=== PATIENT | male | born 1970 | race Asian ===

== ENCOUNTER 2019-09-13 09:16 | Inpatient (IN) | payer BC ==
[~2019-09-13] VITALS: Ht 162.6 cm; Wt 83.0 kg
[2019-09-13 11:29] LABS: UA SPECIFIC GRAVITY 1.025 (1.005-1.035); microscopic required? YES; urine erythrocyte NEGATIVE (NEGATIVE)
[2019-09-13 11:31] LABS: T3 TOTAL 1.27 ng/mL
[2019-09-13 11:35] LABS: ALBUMIN 3.7 g/dL (3.4-5.0); ALKALINE PHOSPHATASE 84 U/L (46-116); ALT/SGPT 49 U/L (16-63); AST/SGOT 52 U/L (15-37); BILIRUBIN TOTAL 0.7 mg/dL (0.20-1.00); CALCIUM 8.7 mg/dL (8.5-10.1); CARBON DIOXIDE 29.7 mmol/L (21-32); CHLORIDE SERUM 102 mmol/L (98-107); CREATININE SERUM 1.4 mg/dL (0.7-1.3); GFR1 57 mL/min; GLUCOSE SERUM 137 mg/dL (74-106); SODIUM SERUM 141 mmol/L (136-145)
[2019-09-13 11:37] LABS: CK-MB 0.7 ng/mL (0-3.6)
[2019-09-13 11:57] LABS: FREE T4 1.34 ng/dL (0.76-1.46)
[2019-09-13 12:01] LABS: FREE THYROXINE INDEX 4.3 ug/dL (1.4-4.5); T4(THYROXINE) 14.2 ug/dL (4.7-13.3)
[2019-09-13 12:16] LABS: C REACTIVE PROTEIN 22.5 mg/dL (<=0.9)
[2019-09-13 12:18] LABS: POTASSIUM SERUM 2.9 mmol/L (3.5-5.1)
[2019-09-13] MEDS ORDERED: AZOR 10-20 MG1 EACH (13:24)
[2019-09-13] MEDS ORDERED: LOPRESSOR50 M1 (13:25)
[2019-09-13] MEDS ORDERED: COZAAR25 M1 (13:25)
[2019-09-13] MEDS ORDERED: FORTAMET500 M1 (13:26)
[2019-09-13] MEDS ORDERED: ATORVASTATIN CA10 M1 (13:26)
[2019-09-13 15:32] LABS: ERYTHROCYTE SED RATE 43 mm/hr (0-15)
[2019-09-13 15:34] LABS: BASOPHIL % 0 % (0-2); PLATELET COUNT 167 x10^3mcL (130-400); RED CELL DISTRIBUTION WIDTH 14.6 % (11.5-14.5)
[2019-09-13 16:00] VITALS: BP 136/100
[2019-09-13 16:13] VITALS: BP 113/68
[2019-09-13 19:05] VITALS: BP 120/73
[2019-09-13 23:35] VITALS: BP 129/86
[2019-09-14 03:02] VITALS: BP 115/85
[2019-09-14 04:37] LABS: BASOPHIL % 0.2 % (0-2); PLATELET COUNT 190 x10^3mcL (130-400); RED CELL DISTRIBUTION WIDTH 15.1 % (11.5-14.5)
[2019-09-14 05:08] LABS: CALCIUM 8.5 mg/dL (8.5-10.1); CHLORIDE SERUM 108 mmol/L (98-107); GFR1 > 60 mL/min; GLUCOSE SERUM 140 mg/dL (74-106); MAGNESIUM 1.9 mg/dL (1.8-2.4); PHOSPHOROUS 1.8 mg/dL (2.5-4.9); POTASSIUM SERUM 3.1 mmol/L (3.5-5.1); SODIUM SERUM 144 mmol/L (136-145)
[2019-09-14 08:00] VITALS: BP 113/76
[2019-09-14 11:30] VITALS: BP 106/72
[2019-09-14 20:45] VITALS: BP 133/96
[2019-09-15] VITALS (11 sets, daily range): BP systolic 83–211; BP diastolic 56–130
[2019-09-15 06:29] LABS: BASOPHIL % 0.5 % (0-2); PLATELET COUNT 219 x10^3mcL (130-400); RED CELL DISTRIBUTION WIDTH 14.3 % (11.5-14.5)
[2019-09-15 06:39] LABS: CALCIUM 8.6 mg/dL (8.5-10.1); CARBON DIOXIDE 29.1 mmol/L (21-32); CHLORIDE SERUM 106 mmol/L (98-107); CREATININE SERUM 0.8 mg/dL (0.7-1.3); GFR1 > 60 mL/min; GLUCOSE SERUM 92 mg/dL (74-106); MAGNESIUM 1.8 mg/dL (1.8-2.4); PHOSPHOROUS 2.4 mg/dL (2.5-4.9); POTASSIUM SERUM 3.2 mmol/L (3.5-5.1); SODIUM SERUM 145 mmol/L (136-145)
[2019-09-16] VITALS (19 sets, daily range): BP systolic 76–138; BP diastolic 49–91
[2019-09-16 05:54] LABS: BASOPHIL % 0.4 % (0-2); PLATELET COUNT 219 x10^3mcL (130-400); RED CELL DISTRIBUTION WIDTH 14.3 % (11.5-14.5)
[2019-09-16 06:11] LABS: CALCIUM 7.7 mg/dL (8.5-10.1); CARBON DIOXIDE 23.2 mmol/L (21-32); CHLORIDE SERUM 111 mmol/L (98-107); CREATININE SERUM 1.3 mg/dL (0.7-1.3); GFR1 > 60 mL/min; GLUCOSE SERUM 82 mg/dL (74-106); MAGNESIUM 1.5 mg/dL (1.8-2.4); PHOSPHOROUS 2.6 mg/dL (2.5-4.9); POTASSIUM SERUM 3.3 mmol/L (3.5-5.1); SODIUM SERUM 146 mmol/L (136-145)
[2019-09-17] VITALS (18 sets, daily range): BP systolic 85–116; BP diastolic 56–77
[2019-09-17 05:11] LABS: MAGNESIUM 1.4 mg/dL (1.8-2.4)
[2019-09-17 05:23] LABS: BASOPHIL % 0.5 % (0-2); PLATELET COUNT 227 x10^3mcL (130-400); RED CELL DISTRIBUTION WIDTH 14.4 % (11.5-14.5)
[2019-09-17 05:33] LABS: ALKALINE PHOSPHATASE 58 U/L (46-116); ALT/SGPT 55 U/L (16-63); AST/SGOT 98 U/L (15-37); BILIRUBIN TOTAL 0.5 mg/dL (0.20-1.00); CALCIUM 7.1 mg/dL (8.5-10.1); CARBON DIOXIDE 25.5 mmol/L (21-32); CHLORIDE SERUM 110 mmol/L (98-107); CREATININE SERUM 0.8 mg/dL (0.7-1.3); GFR1 > 60 mL/min; GLUCOSE SERUM 137 mg/dL (74-106); SODIUM SERUM 144 mmol/L (136-145)
[2019-09-17 05:45] LABS: ALBUMIN 1.8 g/dL (3.4-5.0); TOTAL PROTEIN, SERUM 5.1 g/dL (6.4-8.2)
[2019-09-17 05:54] LABS: C REACTIVE PROTEIN 25.6 mg/dL (<=0.9); POTASSIUM SERUM 2.5 mmol/L (3.5-5.1)
[2019-09-18] VITALS (17 sets, daily range): BP systolic 99–121; BP diastolic 57–92
[2019-09-18 05:06] LABS: BASOPHIL % 0.3 % (0-2); PLATELET COUNT 247 x10^3mcL (130-400); RED CELL DISTRIBUTION WIDTH 14.9 % (11.5-14.5)
[2019-09-18 05:09] LABS: ALKALINE PHOSPHATASE 100 U/L (46-116); ALT/SGPT 96 U/L (16-63); AST/SGOT 148 U/L (15-37); BILIRUBIN TOTAL 0.73 mg/dL (0.20-1.00); CALCIUM 7.3 mg/dL (8.5-10.1); CARBON DIOXIDE 25.3 mmol/L (21-32); CHLORIDE SERUM 110 mmol/L (98-107); CREATININE SERUM 0.6 mg/dL (0.7-1.3); GFR1 > 60 mL/min; GLUCOSE SERUM 124 mg/dL (74-106); MAGNESIUM 1.5 mg/dL (1.8-2.4); PHOSPHOROUS 1.7 mg/dL (2.5-4.9); POTASSIUM SERUM 3.1 mmol/L (3.5-5.1); SODIUM SERUM 145 mmol/L (136-145)
[2019-09-18 05:11] LABS: ALBUMIN 1.7 g/dL (3.4-5.0); TOTAL PROTEIN, SERUM 5.2 g/dL (6.4-8.2)
[2019-09-19] VITALS (18 sets, daily range): BP systolic 91–119; BP diastolic 58–82; Ht 162.6 cm; Wt 83.0 kg
[2019-09-19 05:58] LABS: BASOPHIL % 0.2 % (0-2); PLATELET COUNT 294 x10^3mcL (130-400); RED CELL DISTRIBUTION WIDTH 14.5 % (11.5-14.5)
[2019-09-19 06:14] LABS: ALKALINE PHOSPHATASE 163 U/L (46-116); ALT/SGPT 158 U/L (16-63); AST/SGOT 217 U/L (15-37); BILIRUBIN TOTAL 0.53 mg/dL (0.20-1.00); CALCIUM 7.7 mg/dL (8.5-10.1); CARBON DIOXIDE 28.8 mmol/L (21-32); CHLORIDE SERUM 107 mmol/L (98-107); CREATININE SERUM 0.6 mg/dL (0.7-1.3); GFR1 > 60 mL/min; GLUCOSE SERUM 149 mg/dL (74-106); MAGNESIUM 1.8 mg/dL (1.8-2.4); PHOSPHOROUS 2.4 mg/dL (2.5-4.9); POTASSIUM SERUM 3.4 mmol/L (3.5-5.1); SODIUM SERUM 142 mmol/L (136-145)
[2019-09-19 06:15] LABS: ALBUMIN 1.7 g/dL (3.4-5.0); TOTAL PROTEIN, SERUM 5.4 g/dL (6.4-8.2)
[2019-09-20] VITALS (17 sets, daily range): BP systolic 99–143; BP diastolic 66–89
[2019-09-20 05:23] LABS: BASOPHIL % 0.2 % (0-2); RED CELL DISTRIBUTION WIDTH 13.7 % (11.5-14.5)
[2019-09-20 05:27] LABS: PLATELET COUNT 401 x10^3mcL (130-400)
[2019-09-20 05:29] LABS: ALKALINE PHOSPHATASE 160 U/L (46-116); ALT/SGPT 133 U/L (16-63); AST/SGOT 113 U/L (15-37); BILIRUBIN TOTAL 0.66 mg/dL (0.20-1.00); CALCIUM 8.2 mg/dL (8.5-10.1); CARBON DIOXIDE 28.3 mmol/L (21-32); CHLORIDE SERUM 106 mmol/L (98-107); CREATININE SERUM 0.6 mg/dL (0.7-1.3); GFR1 > 60 mL/min; GLUCOSE SERUM 106 mg/dL (74-106); MAGNESIUM 1.8 mg/dL (1.8-2.4); POTASSIUM SERUM 3.8 mmol/L (3.5-5.1); SODIUM SERUM 144 mmol/L (136-145)
[2019-09-20 05:35] LABS: TOTAL PROTEIN, SERUM 6.1 g/dL (6.4-8.2)
[2019-09-21] VITALS (18 sets, daily range): BP systolic 87–137; BP diastolic 56–97
[2019-09-21 05:52] LABS: BASOPHIL % 0.6 % (0-2); PLATELET COUNT 377 x10^3mcL (130-400)
[2019-09-21 06:21] LABS: ALKALINE PHOSPHATASE 137 U/L (46-116); ALT/SGPT 95 U/L (16-63); AST/SGOT 58 U/L (15-37); BILIRUBIN TOTAL 0.49 mg/dL (0.20-1.00); CALCIUM 8.1 mg/dL (8.5-10.1); CARBON DIOXIDE 30.4 mmol/L (21-32); CHLORIDE SERUM 106 mmol/L (98-107); CREATININE SERUM 0.7 mg/dL (0.7-1.3); GFR1 > 60 mL/min; GLUCOSE SERUM 143 mg/dL (74-106); PHOSPHOROUS 3.3 mg/dL (2.5-4.9); POTASSIUM SERUM 3.8 mmol/L (3.5-5.1); SODIUM SERUM 142 mmol/L (136-145)
[2019-09-21 06:22] LABS: ALBUMIN 1.9 g/dL (3.4-5.0); TOTAL PROTEIN, SERUM 6.1 g/dL (6.4-8.2)
[2019-09-22] VITALS (18 sets, daily range): BP systolic 85–136; BP diastolic 51–84
[2019-09-22 05:42] LABS: BASOPHIL % 0.5 % (0-2); PLATELET COUNT 363 x10^3mcL (130-400)
[2019-09-22 05:49] LABS: RED CELL DISTRIBUTION WIDTH 14.6 % (11.5-14.5)
[2019-09-22 06:02] LABS: ALKALINE PHOSPHATASE 120 U/L (46-116); ALT/SGPT 74 U/L (16-63); AST/SGOT 38 U/L (15-37); BILIRUBIN TOTAL 0.3 mg/dL (0.20-1.00); CALCIUM 8.1 mg/dL (8.5-10.1); CARBON DIOXIDE 29.6 mmol/L (21-32); CHLORIDE SERUM 104 mmol/L (98-107); CREATININE SERUM 0.7 mg/dL (0.7-1.3); GFR1 > 60 mL/min; GLUCOSE SERUM 136 mg/dL (74-106); MAGNESIUM 2.1 mg/dL (1.8-2.4); PHOSPHOROUS 3.1 mg/dL (2.5-4.9); POTASSIUM SERUM 3.6 mmol/L (3.5-5.1); SODIUM SERUM 141 mmol/L (136-145)
[2019-09-22 06:05] LABS: ALBUMIN 2.1 g/dL (3.4-5.0)
[2019-09-23] VITALS (11 sets, daily range): BP systolic 108–133; BP diastolic 64–90
[2019-09-23 05:43] LABS: ALBUMIN 2.4 g/dL (3.4-5.0); ALKALINE PHOSPHATASE 116 U/L (46-116); ALT/SGPT 51 U/L (16-63); AST/SGOT 36 U/L (15-37); BILIRUBIN TOTAL 0.37 mg/dL (0.20-1.00); CALCIUM 8.6 mg/dL (8.5-10.1); CARBON DIOXIDE 32.3 mmol/L (21-32); CHLORIDE SERUM 103 mmol/L (98-107); CREATININE SERUM 0.8 mg/dL (0.7-1.3); GFR1 > 60 mL/min; GLUCOSE SERUM 173 mg/dL (74-106); MAGNESIUM 2.3 mg/dL (1.8-2.4); PHOSPHOROUS 3.3 mg/dL (2.5-4.9); POTASSIUM SERUM 3.5 mmol/L (3.5-5.1); SODIUM SERUM 140 mmol/L (136-145); TOTAL PROTEIN, SERUM 6.5 g/dL (6.4-8.2)
[2019-09-23 05:53] LABS: BASOPHIL % 0.5 % (0-2)
[2019-09-23 05:59] LABS: PLATELET COUNT 441 x10^3mcL (130-400); RED CELL DISTRIBUTION WIDTH 14.7 % (11.5-14.5)
== END 2019-09-23 14:40 | disposition short-term general hospital (02) | DRG 870 ==
LOC: ED 09:16 → IC 12:22 → DU 09-14 18:12 → IC 09-15 11:21
PROVIDERS: Internal Medicine; Specialist; ADMIT Internal Medicine
PROC: 5A1955Z Respiratory Ventilation, Greater than 96 Consecutive Hours (ICD-10-PCS; principal; 2019-09-18)
PROC: 0BH17EZ Insertion of Endotracheal Airway into Trachea, Via Natural or Artificial Opening (ICD-10-PCS; 2019-09-18)
DX: A41.89 Other specified sepsis (principal); U07.1 COVID-19; J96.01 Acute respiratory failure with hypoxia; N17.0 Acute kidney failure with tubular necrosis; E43 Unspecified severe protein-calorie malnutrition; J18.9 Pneumonia, unspecified organism; R65.20 Severe sepsis without septic shock; E11.65 Type 2 diabetes mellitus with hyperglycemia; E87.6 Hypokalemia; E86.0 Dehydration; E83.42 Hypomagnesemia; E83.39 Other disorders of phosphorus metabolism; I10 Essential (primary) hypertension; Z68.25 Body mass index [BMI] 25.0-25.9, adult; Z79.84 Long term (current) use of oral hypoglycemic drugs; E66.01 Morbid (severe) obesity due to excess calories
CPT/HCPCS: 31500; 36556; 36600; 82962; 83880; 84439; 85378; 87804; A4628; C1751; C9113; G0378; J0456; J0696; J1644; J1940; J2250; J2704; J3010; J3475; J3480; J3490; J3535; J7030; J7040; J7050; J7060; Q0092; U0002